=== PATIENT | female | born 1955 | race Caucasian/White ===

== ENCOUNTER 2017-10-21 11:13 | Emergency (ER) | payer OTHER ==
[2017-10-21] MEDS: DIPHENHYDRAMINE 25 MG CAP PO (11:48)
[2017-10-21] MEDS: predniSONE 20 MG TAB PO (11:48)
== END 2017-10-21 12:08 | disposition home or self-care (01) ==
LOC: FTE 11:13
DX: L30.9 Dermatitis, unspecified (principal); I10 Essential (primary) hypertension
CPT/HCPCS: 99283; J7512